=== PATIENT | male | born 1990 | race Two or more races ===

== ENCOUNTER 2025-03-27 14:36 | Emergency (ER) | payer SELFPAY ==
[2025-03-27 14:45] VITALS: BMI 30.6
[2025-03-27] MEDS ORDERED: ACETAMINOPHEN INJECTION 100 ML ONE (15:17)
[2025-03-27] MEDS ORDERED: FAMOTIDINE 20 MG/50 ML IVPB 20 MG/50 ML MG IVPB ONE (15:17)
[2025-03-27] MEDS: SODIUM CHLORIDE 1,000 ML IV STA (15:44)
[2025-03-27] MEDS: ACETAMINOPHEN 1000 MG/100 ML BAG IVPB ONE (15:44)
[2025-03-27] MEDS ORDERED: ONDANSETRON 4 MG/2 ML VIAL ONE (15:47)
[2025-03-27 15:50] LABS: ABSOLUTE IMMATURE GRANULOCYTES 0.01 x10^3/uL (0.0-0.031); BASOPHILS # 0.07 x10^3/uL (0.01-0.08); EOSINOPHIL % 4.3 % (0.8-7.0); EOSINOPHILS # 0.21 x10^3/uL (0.04-0.54); HEMOGLOBIN 13.8 g/dL (13.7-17.5); MCHC 32.9 g/dl (32.3-36.5); MEAN CELL VOLUME 96.3 fl (79.0-92.2); MEAN PLT VOLUME 11.1 fl (9.4-12.4); MONOCYTE # 0.37 x10^3/uL (0.30-0.82); MONOCYTE % 7.6 % (5.3-12.2); PLATELET COUNT 220 x10^3/uL (163-337); RDW 12.2 % (12.0-15.6)
[2025-03-27 15:51] LABS: PH,URINE 6.5 (5.0-8.0); URINE APPEARANCE CLEAR; URINE BILIRUBIN NEGATIVE (NEGATIVE); URINE COLOR YELLOW; URINE GLUCOSE (UA) NEGATIVE (NEGATIVE); URINE KETONE TRACE (NEGATIVE); URINE LEUK ESTERASE NEGATIVE (NEGATIVE); URINE NITRITE NEGATIVE (NEGATIVE); URINE PROTEIN NEGATIVE (NEGATIVE)
[2025-03-27] MEDS: FAMOTIDINE 20 MG/50 ML IVPB 20 MG/50 ML MG IVPB ONE (15:55)
[2025-03-27] MEDS: ONDANSETRON 4 MG/2 ML VIAL IVPUSH ONE (15:55)
[2025-03-27 15:57] LABS: INR 0.98 (0.83-1.09); PROTHROMBIN TIME (PATIENT) 10.8 SEC (9.7-13.0)
[2025-03-27 15:59] LABS: ACTIVATED PTT 34.2 SECONDS (25.2-36.5)
[2025-03-27 16:10] LABS: POTASSIUM 5.1 mmol/L (3.5-5.1)
[2025-03-27 16:11] LABS: ALBUMIN 4.2 g/dl (3.4-5.0); CALCIUM 9.3 mg/dL (8.5-10.1)
[2025-03-27 16:13] LABS: BLOOD UREA NITROGEN 12.4 mg/dL (7-18)
[2025-03-27 16:15] LABS: CREATININE 1.2 mg/dL (0.55-1.3)
[2025-03-27 16:17] LABS: BILIRUBIN,TOTAL 1.6 mg/dL (0.2-1); TOT PROT 7.6 g/dl (6.4-8.2)
[2025-03-27 17:13] LABS: HCV DIAGNOSTIC IN-HOUSE W/RFLX NON-REACTIVE (NONREACTIVE); HIV INTERPRETATION NEGATIVE (NEGATIVE)
[2025-03-27 17:16] VITALS: BP 114/69; PULSE 64; RESP 16; TEMP 98.1
== END 2025-03-27 18:54 | disposition home or self-care (01) ==
LOC: JER 14:36
PROC: 3E033GC Introduction of Other Therapeutic Substance into Peripheral Vein, Percutaneous Approach (ICD-10-PCS; principal; 2025-03-27)
PROC: 3E033NZ Introduction of Analgesics, Hypnotics, Sedatives into Peripheral Vein, Percutaneous Approach (ICD-10-PCS; 2025-03-27)
PROC: 3E033GC Introduction of Other Therapeutic Substance into Peripheral Vein, Percutaneous Approach (ICD-10-PCS; 2025-03-27)
DX: K29.70 Gastritis, unspecified, without bleeding (principal); R10.13 Epigastric pain
CPT/HCPCS: 0241U-QW; 36415; 80053; 81003; 83690; 85025; 85610; 85730; 86803; 87086; 87389; 99284-25; J0131